=== PATIENT | male | born 2000 | race Caucasian/White ===

== ENCOUNTER 2023-12-02 15:37 | Emergency (ER) | payer BC, OTHER ==
[2023-12-02] MEDS ORDERED: CYCLOBENZAPRINE 10 MG TAB ONE (16:22)
[2023-12-02] MEDS ORDERED: KETOROLAC 30 MG/ML INJ ONE (16:22)
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
[2023-12-02 19:24] VITALS: TEMP 98.5
[2023-12-02 19:25] VITALS: BP 132/82; O2SAT 99
== END 2023-12-02 18:55 | disposition home or self-care (01) ==
LOC: ER 15:37
DX: S39.012A Strain of muscle, fascia and tendon of lower back, initial encounter (principal); V49.49XA Driver injured in collision with other motor vehicles in traffic accident, initial encounter
CPT/HCPCS: 72100; 99283